=== PATIENT | male | born 1970 | race Caucasian/White ===

== ENCOUNTER 2016-12-15 10:19 | Emergency (ER) | payer OTHER ==
[~2016-12-15] VITALS: Ht 172.7 cm; Wt 91.2 kg
[~2016-12-15 10:19] MED LIST: Ambien PO; BENTYL20 MG PO; Benadryl PO; CATAPRES0.1 MG PO; ESKALITH300 M1 PO; Folvite PO; LITHIUM CARBON300 MG PO; Motrin PO; RITALIN LA30 MG; Robitussin, Organidi PO; SEROQUEL100 MG PO; STRATTERA40 MG PO; THERAGRAN1 TABLET PO; THIAMINE,VITAM100 MG PO
[2016-12-15] MEDS ORDERED: PEN-VEE K,VEET500 MG PO (12:46)
[2016-12-15] MEDS ORDERED: MOTRIN800 MG PO (12:46)
[2016-12-15] MEDS ORDERED: PERCOCET 5/31 TABLET PO (12:46)
[2016-12-15 13:14] VITALS: BP 152/109
== END 2016-12-15 13:15 | disposition home or self-care (01) ==
LOC: EME 10:19
DX: K02.9 Dental caries, unspecified (principal); K08.89 Other specified disorders of teeth and supporting structures
CPT/HCPCS: 99281; 99283

== ENCOUNTER 2017-08-01 00:03 | Inpatient (IN) | payer OTHER ==
[~2017-08-01] VITALS: Ht 172.7 cm; Wt 77.0 kg
[~2017-08-01 00:03] MED LIST changes: +MOTRIN800 MG PO; +PEN-VEE K,VEET500 MG PO; +PERCOCET 5/31 TABLET PO
[2017-08-01 00:29] LABS: HEMATOCRIT 43.5 % (38.0-50.0); HEMOGLOBIN 15.1 G/DL (12.5-16.6); MCH 30.8 PG (29.0-34.0); MCHC 34.7 G/DL (30.0-36.0); MCV 88.8 FL (86-99); PLATELET COUNT 257 K/uL (156-360); RBC DIS.WIDTH-CV 13.2 % (11.8-14.6)
[2017-08-01 00:39] LABS: CHLORIDE 99 mEq/L (99-109); POTASSIUM 3.9 mEq/L (3.7-5.4); SODIUM 134 mEq/L (136-147)
[2017-08-01 00:40] LABS: GLUCOSE 105 mg/dL (70-99)
[2017-08-01 00:44] LABS: CREATININE 0.9 mg/dL (0.6-1.3); GFR ESTIMATE (CALCULATED) > 59 mL/min/ (58.99-99999); SERUM ETHYL ALCOHOL < 10 mg/dL
[2017-08-01 00:45] LABS: UREA NITROGEN (BUN) 9 mg/dL (9-23)
[2017-08-01 01:55] LABS: AMPHETAMINE PRESUMPTIVE POSITIVE (500 ng/mL); BARBITURATES NEGATIVE (200 ng/mL); BENZODIAZEPINES NEGATIVE (150 ng/mL); BUPRENORPHINE NEGATIVE (10 ng/mL); COCAINE PRESUMPTIVE POSITIVE (150 ng/mL); METHADONE NEGATIVE (200 ng/mL); METHAMPHETAMINE NEGATIVE (500 ng/mL); OPIATES (MORPHINE) PRESUMPTIVE POSITIVE (100 ng/mL); OXYCODONE NEGATIVE (100 ng/mL); PHENCYCLIDINE NEGATIVE (25 ng/mL); PROPOXYPHENE NEGATIVE (300 ng/mL); THC CANNABINOIDS PRESUMPTIVE POSITIVE (50 ng/mL); TRICYCLIC ANTIDEPRESSANTS NEGATIVE (300 ng/mL)
[2017-08-01 12:04] VITALS: BP 157/95
[2017-08-01 12:08] VITALS: BP 157/95
[2017-08-01] MEDS ORDERED: WELLBUTRIN XL300 MG PO (12:55)
[2017-08-01] MEDS ORDERED: WELLBUTRIN100 MG PO (12:55)
[2017-08-01] MEDS ORDERED: ADDERALL30 MG PO (12:56)
[2017-08-01 15:29] VITALS: BP 157/96
[2017-08-01 21:21] VITALS: BP 128/82
[2017-08-02 07:32] VITALS: BP 139/86
[2017-08-02 15:32] VITALS: BP 149/103
[2017-08-02 21:12] VITALS: BP 148/100
[2017-08-03 06:53] VITALS: BP 131/84
[2017-08-03 15:47] VITALS: BP 126/77
[2017-08-03 20:45] VITALS: BP 142/112
[2017-08-04 08:06] VITALS: BP 120/72
[2017-08-04 15:22] VITALS: BP 142/98
[2017-08-04 20:48] VITALS: BP 131/92
[2017-08-05 09:38] VITALS: BP 115/63
[2017-08-05 15:37] VITALS: BP 136/94
[2017-08-06 07:53] VITALS: BP 122/72
[2017-08-06 15:48] VITALS: BP 155/91
[2017-08-07 07:34] VITALS: BP 154/97
[2017-08-07 15:39] VITALS: BP 154/96
[2017-08-08] MEDS ORDERED: DEPAKOTE500 MG PO (08:56)
[2017-08-08] MEDS ORDERED: SEROQUEL100 MG PO ×2 (08:57→08:59)
[2017-08-08] MEDS ORDERED: NEURONTIN800 MG PO (09:01)
== END 2017-08-08 09:10 | disposition home or self-care (01) | DRG 897 ==
LOC: EME 00:03 → EDOF 11:25 → 1WEST 11:25 → ENRESERV 11:44 → 1WEST 12:02
PROVIDERS: Emergency Medicine
PROC: HZ2ZZZZ Detoxification Services for Substance Abuse Treatment (ICD-10-PCS; principal; 2017-08-01)
DX: F11.24 Opioid dependence with opioid-induced mood disorder (principal); R45.851 Suicidal ideations; F11.23 Opioid dependence with withdrawal; F31.9 Bipolar disorder, unspecified; F60.81 Narcissistic personality disorder; F90.9 Attention-deficit hyperactivity disorder, unspecified type; I10 Essential (primary) hypertension; Z91.14 Patient's other noncompliance with medication regimen; F10.11 Alcohol abuse, in remission; F14.11 Cocaine abuse, in remission; F17.200 Nicotine dependence, unspecified, uncomplicated
CPT/HCPCS: 71046; 80048; 80164; 84999; 85027; 90839; 97150 GO; 97165 GO; 99281; 99285; G0480; J0572; J0574; Q0177

== ENCOUNTER 2017-12-05 02:15 | Inpatient (IN) | payer OTHER ==
[~2017-12-05] VITALS: Ht 172.7 cm; Wt 79.5 kg
[~2017-12-05 02:15] MED LIST changes: +ADDERALL30 MG PO; +DEPAKOTE500 MG PO; +NEURONTIN800 MG PO; +WELLBUTRIN XL300 MG PO; +WELLBUTRIN100 MG PO
[2017-12-05 03:40] LABS: BASOPHIL (%) 0.7 % (0-1); BASOPHIL COUNT 0.1 K/uL (0-0.1); EOSINOPHIL (%) 4.5 % (0-5); EOSINOPHIL COUNT 0.4 K/uL (0-0.3); HEMATOCRIT 38.3 % (38.0-50.0); HEMOGLOBIN 13.3 G/DL (12.5-16.6); IMMATURE GRANULOCYTE (%) 0.2 % (0.0-0.7); LYMPHOCYTE (%) 33.4 % (15-42); LYMPHOCYTE COUNT 2.7 K/uL (1.0-2.8); MCH 32.3 PG (29.0-34.0); MCHC 34.7 G/DL (30.0-36.0); MONOCYTE (%) 8.5 % (3-12); MONOCYTE COUNT 0.7 K/uL (0-0.8); NEUTROPHIL (%) 52.7 % (45-76); NEUTROPHIL COUNT 4.3 K/uL (1.8-6.4); NRBC (%) 0.6 /100 WBC (0-0); PLATELET COUNT 239 K/uL (156-360); RBC DIS.WIDTH-CV 12.7 % (11.8-14.6); RBC DIS.WIDTH-SD 43.6 % (39-53); RED BLOOD COUNT 4.12 M/uL (4.00-5.50); WHITE BLOOD COUNT 8.1 K/uL (4.1-10.2)
[2017-12-05 03:48] LABS: ALBUMIN 3.6 g/dL (3.2-4.8); CHLORIDE 105 mEq/L (99-109); POTASSIUM 3.5 mEq/L (3.7-5.4); SODIUM 138 mEq/L (136-147)
[2017-12-05 03:51] LABS: GLUCOSE 118 mg/dL (70-99); TOTAL PROTEIN 6.7 g/dL (6.4-8.3)
[2017-12-05 03:53] LABS: TOTAL BILIRUBIN 0.4 mg/dL (0.0-1.0)
[2017-12-05 03:54] LABS: ALKALINE PHOSPHATASE 115 IU/L (3-129); SERUM ETHYL ALCOHOL < 10 mg/dL
[2017-12-05 03:55] LABS: CREATININE 0.8 mg/dL (0.6-1.3); GFR ESTIMATE (CALCULATED) > 59 mL/min/ (58.99-99999)
[2017-12-05 03:56] LABS: AST (GOT) 32 IU/L (2-34); UREA NITROGEN (BUN) 15 mg/dL (9-23)
[2017-12-05 03:57] LABS: ALT (GPT) 32 IU/L (3-49)
[2017-12-05 05:09] LABS: AMPHETAMINE PRESUMPTIVE POSITIVE (500 ng/mL); BARBITURATES NEGATIVE (200 ng/mL); BENZODIAZEPINES NEGATIVE (150 ng/mL); BUPRENORPHINE NEGATIVE (10 ng/mL); COCAINE PRESUMPTIVE POSITIVE (150 ng/mL); METHADONE NEGATIVE (200 ng/mL); METHAMPHETAMINE NEGATIVE (500 ng/mL); OPIATES (MORPHINE) NEGATIVE (100 ng/mL); OXYCODONE NEGATIVE (100 ng/mL); PHENCYCLIDINE NEGATIVE (25 ng/mL); PROPOXYPHENE NEGATIVE (300 ng/mL); THC CANNABINOIDS PRESUMPTIVE POSITIVE (50 ng/mL); TRICYCLIC ANTIDEPRESSANTS NEGATIVE (300 ng/mL)
[2017-12-05 05:29] LABS: APPEARANCE CLEAR ((CLEAR)); BILIRUBIN NEGATIVE; BLOOD NEGATIVE; COLOR YELLOW ((YELLOW)); GLUCOSE (STRIP) NEGATIVE; KETONES NEGATIVE; LEUKOCYTES NEGATIVE; NITRITE NEGATIVE; PROTEIN (STRIP) 30; SPECIFIC GRAVITY 1.028 (1.000-1.030)
[2017-12-05 13:02] VITALS: BP 167/108
[2017-12-05 16:15] VITALS: BP 154/101
[2017-12-06 07:32] VITALS: BP 146/77
[2017-12-06] MEDS ORDERED: WELLBUTRIN XL150 MG PO (09:48)
[2017-12-06 16:07] VITALS: BP 158/109
[2017-12-07 07:39] VITALS: BP 134/65
[2017-12-07 16:20] VITALS: BP 143/100
[2017-12-08 07:55] VITALS: BP 128/78
[2017-12-08] MEDS ORDERED: SEROQUEL100 MG PO (09:41)
[2017-12-08] MEDS ORDERED: DIVALPROEX SOD500 MG PO (09:41)
[2017-12-08] MEDS ORDERED: WELLBUTRIN XL150 MG PO (09:41)
[2017-12-08] MEDS ORDERED: WELLBUTRIN XL300 MG PO (09:41)
[2017-12-08] MEDS ORDERED: ADDERALL30 MG PO (09:41)
== END 2017-12-08 10:33 | DRG 885 ==
LOC: EME 02:15 → EDOF 12:06 → ENRESERV 12:45 → 1WEST 12:52
PROVIDERS: Emergency Medicine
DX: F31.9 Bipolar disorder, unspecified (principal); F11.20 Opioid dependence, uncomplicated; F12.20 Cannabis dependence, uncomplicated; F17.200 Nicotine dependence, unspecified, uncomplicated; R45.851 Suicidal ideations; Z59.0 Homelessness; F90.9 Attention-deficit hyperactivity disorder, unspecified type; F19.94 Other psychoactive substance use, unspecified with psychoactive substance-induced mood disorder; Z56.0 Unemployment, unspecified
CPT/HCPCS: 80053; 81003; 84999; 85025; 90839; 99281; 99285; G0480; J0572; J0574; Q0177